=== PATIENT | male | born 1980 | race Hispanic/Latino ===

== ENCOUNTER 2020-10-16 10:42 | Inpatient (IN) | payer OTHER ==
[~2020-10-16] VITALS: Ht 467.4 cm; Wt 86.2 kg
[2020-10-16 10:44] VITALS: BP 112/59
[2020-10-16 11:21] LABS: BASOPHILS % (AUTO) 0.2 % (0.0-5.0); EOSINOPHILS % (AUTO) 0.9 % (0.0-8.0); LYMPHOCYTES % (AUTO) 35.6 % (21.0-51.0); MEAN CORPUSCULAR VOLUME 88.2 fL (79-99); MONOCYTES % (AUTO) 12.5 % (3.0-13.0); NEUTROPHILS % (AUTO) 50.6 % (40.0-77.0); PLATELET COUNT (AUTO) 196 K/uL (130-400); RED BLOOD CELL COUNT(AUTO) 5.67 MIL/uL (4.50-6.20); RED CELL DISTRIBUTION WIDTH 11.9 % (11.0-15.5); WHITE BLOOD COUNT (AUTO) 4.3 K/uL (4.8-10.8)
[2020-10-16] MEDS ORDERED: NITROGLYCERIN 1GM OINT 1 INCH/1GM TD SCH (11:30)
[2020-10-16] MEDS ORDERED: NITROGLYCERIN 1GM OINT 1 INCH/1GM TD ONE (11:30)
[2020-10-16] MEDS ORDERED: CLOPIDOGREL 75MG TAB ONE (11:30)
[2020-10-16] MEDS ORDERED: CLOPIDOGREL 75MG TAB PO SCH (11:30)
[2020-10-16 11:38] LABS: CREATININE 1.1 mg/dL (0.5-1.5); POTASSIUM 4.2 mmol/L (3.5-5.1)
[2020-10-16 11:41] LABS: INR 1.13 (0.85-1.15); PROTHROMBIN TIME 12.2 SEC (9.6-11.6)
[2020-10-16 11:42] LABS: PARTIAL THROMBOPLASTIN TIME 26.5 SEC (26.3-35.5)
[2020-10-16 11:45] LABS: ALBUMIN 3.7 g/dL (3.5-5.0); BILIRUBIN,TOTAL 0.9 mg/dL (0.2-1.0); TOTAL PROTEIN, SERUM 7.2 g/dL (6.0-8.3)
[2020-10-16 11:56] VITALS: BP 113/69
[2020-10-16 11:59] LABS: B-TYPE NATRIURETIC PEPTIDE 284 pg/mL (0-100)
[2020-10-16] MEDS ORDERED: ONDANSETRON 4MG INJ IV PRN (13:30)
[2020-10-16] MEDS ORDERED: CARVEDILOL 6.25 MG TABLET PO ONE (13:30)
[2020-10-16] MEDS: NITROGLYCERIN 1GM OINT 1 INCH/1GM TD SCH ×2 (13:30→21:30)
[2020-10-16] MEDS ORDERED: HYDROCODONE/ACETAMINOPHEN 5/325 MG TAB PO PRN (13:30)
[2020-10-16] MEDS ORDERED: NITROGLYCERIN 0.4 MG SL TAB SL PRN (13:30)
[2020-10-16] MEDS ORDERED: MORPHINE 2 MG SYG IVP PRN (13:30)
[2020-10-16] MEDS ORDERED: ACETAMINOPHEN 325 MG TAB PO PRN (13:30)
[2020-10-16] MEDS ORDERED: ALPRAZOLAM 0.25 MG TABLET PO ONE (13:30)
[2020-10-16 14:05] LABS: APPEARANCE,URINE Clear (CLEAR); BILIRUBIN,URINE Negative (NEGATIVE); COLOR,URINE Yellow (YELLOW); GLUCOSE, URINE (UA) Negative (NEGATIVE); KETONES,URINE Negative (NEGATIVE); LEUKOCYTE ESTERASE ,URINE Negative (NEGATIVE); NITRATE,URINE Negative (NEGATIVE); OCCULT BLOOD,URINE Negative (NEGATIVE); PH,URINE 6.5 (5.0-8.0); PROTEIN,URINE Negative (NEGATIVE)
[2020-10-16 14:19] VITALS: BP 105/65
[2020-10-16] MEDS: FUROSEMIDE 40MG VIAL IV ONE ×2 (15:00→16:08)
[2020-10-16 16:09] VITALS: BP 106/64
[2020-10-16 19:33] VITALS: BP 112/70
[2020-10-16] MEDS: CARVEDILOL 3.125 MG TABLET PO SCH (21:00)
[2020-10-16] MEDS: FAMOTIDINE 20MG VIAL IV SCH (22:03)
[2020-10-16 22:21] VITALS: BP 99/61
[2020-10-17] VITALS (9 sets, daily range): BP systolic 97–126; BP diastolic 61–83
[2020-10-17] MEDS: NITROGLYCERIN 1GM OINT 1 INCH/1GM TD SCH ×3 (05:30→21:30)
[2020-10-17 06:57] LABS: BASOPHILS % (AUTO) 0.2 % (0.0-5.0); EOSINOPHILS % (AUTO) 1.9 % (0.0-8.0); HEMATOCRIT 48.4 % (42-54); LYMPHOCYTES % (AUTO) 41.2 % (21.0-51.0); MEAN CORPUSCULAR HEMOGLOBIN 29.7 pg (27.0-33.0); MEAN CORPUSCULAR HGB CONC 33.7 g/dL (32.0-36.0); MEAN CORPUSCULAR VOLUME 88.2 fL (79-99); MONOCYTES % (AUTO) 13.1 % (3.0-13.0); NEUTROPHILS % (AUTO) 43.1 % (40.0-77.0); PLATELET COUNT (AUTO) 170 K/uL (130-400); RED BLOOD CELL COUNT(AUTO) 5.49 MIL/uL (4.50-6.20); RED CELL DISTRIBUTION WIDTH 11.9 % (11.0-15.5); WHITE BLOOD COUNT (AUTO) 4.1 K/uL (4.8-10.8)
[2020-10-17 07:13] LABS: ALBUMIN 3.5 g/dL (3.5-5.0); BILIRUBIN,TOTAL 0.8 mg/dL (0.2-1.0); POTASSIUM 4.3 mmol/L (3.5-5.1); TOTAL PROTEIN, SERUM 6.7 g/dL (6.0-8.3)
[2020-10-17] MEDS: ENOXAPARIN SODIUM 40 MG/0.4 ML SYRINGE SQ SCH (09:00)
[2020-10-17] MEDS ORDERED: CLOPIDOGREL 75MG TAB PO SCH (09:00)
[2020-10-17] MEDS: FAMOTIDINE 20MG VIAL IV SCH ×2 (09:00→21:41)
[2020-10-17 12:30] LABS: LACTATE DEHYDROGENASE 184 U/L (81-234); THYROID STIMULATING HORMONE 1.09 uIU/mL (0.36-3.74)
[2020-10-17 13:19] LABS: CRP QUANTITATIVE < 2.00 mg/L (0.00-9.0)
[2020-10-17] MEDS: CARVEDILOL 3.125 MG TABLET PO SCH ×2 (19:00→21:00)
[2020-10-18] VITALS (10 sets, daily range): BP systolic 103–127; BP diastolic 60–74
[2020-10-18] MEDS: NITROGLYCERIN 1GM OINT 1 INCH/1GM TD SCH ×3 (05:30→21:15)
[2020-10-18 08:25] LABS: BASOPHILS % (AUTO) 0.4 % (0.0-5.0); EOSINOPHILS % (AUTO) 1.8 % (0.0-8.0); HEMATOCRIT 48.8 % (42-54); LYMPHOCYTES % (AUTO) 41.4 % (21.0-51.0); MEAN CORPUSCULAR HEMOGLOBIN 29.7 pg (27.0-33.0); MEAN CORPUSCULAR HGB CONC 33.8 g/dL (32.0-36.0); MEAN CORPUSCULAR VOLUME 87.8 fL (79-99); MONOCYTES % (AUTO) 11.7 % (3.0-13.0); NEUTROPHILS % (AUTO) 44.3 % (40.0-77.0); PLATELET COUNT (AUTO) 182 K/uL (130-400); RED BLOOD CELL COUNT(AUTO) 5.56 MIL/uL (4.50-6.20); RED CELL DISTRIBUTION WIDTH 11.7 % (11.0-15.5)
[2020-10-18] MEDS: FAMOTIDINE 20MG VIAL IV SCH ×2 (08:51→21:16)
[2020-10-18] MEDS: PANTOPRAZOLE 40 MG TAB DR PO SCH (08:51)
[2020-10-18] MEDS: ASPIRIN 81 MG EC TAB PO SCH (08:51)
[2020-10-18] MEDS: CARVEDILOL 3.125 MG TABLET PO SCH ×2 (08:53→21:15)
[2020-10-18] MEDS: ENOXAPARIN SODIUM 40 MG/0.4 ML SYRINGE SQ SCH (08:58)
[2020-10-18 08:59] LABS: ALANINE AMINOTRANSFERASE 45 U/L (12-78); ALBUMIN 3.5 g/dL (3.5-5.0); ASPARTATE AMINOTRANSFERASE 27 U/L (10-37); BILIRUBIN,TOTAL 0.8 mg/dL (0.2-1.0); CARBON DIOXIDE 28 mmol/L (21-32); CHLORIDE 106 mmol/L (101-111); GLOMERULAR FILTR. RATE CALC 88 mL/min (>60); GLUCOSE,RANDOM 85 mg/dL (70-105); POTASSIUM 4.1 mmol/L (3.5-5.1); SODIUM SERUM 141 mmol/L (136-145); TOTAL PROTEIN, SERUM 6.7 g/dL (6.0-8.3); UREA NITROGEN, BLOOD 14 mg/dL (7-18)
[2020-10-18 09:01] LABS: CRP QUANTITATIVE < 2.00 mg/L (0.00-9.0)
[2020-10-19 04:00] VITALS: BP 118/66
[2020-10-19 04:46] LABS: BASOPHILS % (AUTO) 0.3 % (0.0-5.0); EOSINOPHILS % (AUTO) 2.1 % (0.0-8.0); HEMATOCRIT 45.5 % (42-54); LYMPHOCYTES % (AUTO) 38.1 % (21.0-51.0); MEAN CORPUSCULAR HEMOGLOBIN 29.9 pg (27.0-33.0); MEAN CORPUSCULAR HGB CONC 34.7 g/dL (32.0-36.0); MONOCYTES % (AUTO) 9.6 % (3.0-13.0); NEUTROPHILS % (AUTO) 49.4 % (40.0-77.0); PLATELET COUNT (AUTO) 204 K/uL (130-400); RED BLOOD CELL COUNT(AUTO) 5.29 MIL/uL (4.50-6.20); RED CELL DISTRIBUTION WIDTH 11.7 % (11.0-15.5); WHITE BLOOD COUNT (AUTO) 5.8 K/uL (4.8-10.8)
[2020-10-19] MEDS: NITROGLYCERIN 1GM OINT 1 INCH/1GM TD SCH ×2 (05:16→12:05)
[2020-10-19 05:19] LABS: ALBUMIN 3.5 g/dL (3.5-5.0); BILIRUBIN,TOTAL 1.1 mg/dL (0.2-1.0); CREATININE 1.1 mg/dL (0.5-1.5); POTASSIUM 4.1 mmol/L (3.5-5.1); TOTAL PROTEIN, SERUM 6.6 g/dL (6.0-8.3)
[2020-10-19 08:37] LABS: CHOLESTEROL 138 mg/dL (<200); HDL CHOLESTEROL 32 mg/dL (29-71); LDL DIRECT 85 mg/dL (0-99); TRIGLYCERIDES 122 mg/dL (30-200)
[2020-10-19] MEDS: ASPIRIN 81 MG EC TAB PO SCH (08:47)
[2020-10-19] MEDS: FAMOTIDINE 20MG VIAL IV SCH (08:47)
[2020-10-19 08:48] VITALS: BP 97/60
[2020-10-19] MEDS: PANTOPRAZOLE 40 MG TAB DR PO SCH (08:48)
[2020-10-19] MEDS: ENOXAPARIN SODIUM 40 MG/0.4 ML SYRINGE SQ SCH (08:49)
[2020-10-19 11:31] VITALS: BP 117/70
[2020-10-19] MEDS: CARVEDILOL 3.125 MG TABLET PO SCH (12:04)
[2020-10-19] MEDS ORDERED: ATOR20TA65 PO (14:57)
[2020-10-19] MEDS ORDERED: CARV3.1262 PO (14:57)
[2020-10-19] MEDS ORDERED: AEC81 PO (14:57)
[2020-10-19] MEDS ORDERED: APIX2.5T PO (15:03)
[2020-10-19] MEDS ORDERED: TRAZ-185 PO (16:20)
[2020-10-19 16:35] VITALS: BP 112/74
[2020-10-19] MEDS ORDERED: ATORVASTATIN 20 MG TABLET PO SCH (21:00)
== END 2020-10-19 17:40 | DRG 280 ==
LOC: EDH 10:42 → EDHIP 13:22 → OBSVTOIN 13:22 → UNDOADMIN 13:22 → INTOOBSV 13:22 → 2AH 10-18 11:09 → EDHIP 10-18 11:09 → 2AH 10-18 11:09 → UNDODISIN 10-19 17:40
PROVIDERS: ADMIT Hospitalist; ATTEND Hospitalist
DX: I21.4 Non-ST elevation (NSTEMI) myocardial infarction (principal); U07.1 COVID-19; I50.31 Acute diastolic (congestive) heart failure; I45.2 Bifascicular block; D68.59 Other primary thrombophilia; F32.9 Major depressive disorder, single episode, unspecified; F41.9 Anxiety disorder, unspecified; I11.0 Hypertensive heart disease with heart failure; I25.10 Atherosclerotic heart disease of native coronary artery without angina pectoris; Z79.01 Long term (current) use of anticoagulants; Z79.82 Long term (current) use of aspirin; Z79.899 Other long term (current) drug therapy
CPT/HCPCS: 36415; 71045; 80053; 80061; 81003; 82728; 83615; 83880; 84145; 84443; 84484; 85025; 85378; 85610; 85730; 86140; 87635; 93005; 93970; C9803; G0378; J1650; J1940; J3490